=== PATIENT | male | born 1975 | race Caucasian/White ===

== ENCOUNTER 2019-04-12 19:07 | Emergency (ER) | payer OTHER ==
[2019-04-12] MEDS ORDERED: Dicyclomine CAP* 10 MG PO ONE (19:32)
--- NOTE | 2019-04-12 20:01 | ED ---
Laceration/Wound HPI - HPI Summary HPI Summary: Patient complains of partial amputation of distal portion of left medial thumb involving portion of nail and nailbed today. Tetanus status up-to-date. Patient brings amputated portion with him in a Tupperware. No anti-coag. Denies any other pain injury or symptoms. - History of Current Complaint Stated Complaint: CUT ON THUMB PER PT Time Seen by Provider: 04/12/19 19:31 Hx Obtained From: Patient Mechanism of Injury: Sharp/Blunt Trauma Aggravating: Nothing Alleviating: Nothing Onset Severity: Mild Current Severity: Mild Pain Intensity: 3 Pain Scale Used: 0-10 Numeric Associated Signs & Symptoms: Negative - Allergy/Home Medications Allergies/Adverse Reactions: Allergies Allergy/AdvReac Type Severity Reaction Status Date / Time No Known Allergies Allergy Verified 04/12/19 19:14 PMH/Surg Hx/FS Hx/Imm Hx Endocrine/Hematology History: Denies: Hx Anticoagulant Therapy Cardiovascular History: Denies: Hx Pacemaker/ICD History: Denies: Hx Dialysis Sensory History: Denies: Hx Eye Prosthesis Opthamlomology History: Denies: Hx Legally Blind EENT History: Denies: Hx Deafness Neurological History: Denies: Hx Dementia Infectious Disease History: No Infectious Disease History: Denies: Traveled Outside the [place] in Last 30 Days - Family History Known Family History: Positive: Non-Contributory - Social History Alcohol Use: Occasionally Hx Substance Use: No Hx Tobacco Use: No Review of Systems Constitutional: Negative Eyes: Negative ENT: Negative Cardiovascular: Negative Respiratory: Negative Gastrointestinal: Negative Genitourinary: Negative Musculoskeletal: Negative Skin: Other Neurological: Negative Psychological: Normal All Other Systems Reviewed And Are Negative: Yes Physical Exam - Summary Physical Exam Summary: Amputation of distal tip of medial left thumb 1 cm x 1 cm involving portion of nail and nail bed. No indication for suturing. Exam of left hand otherwise normal. Triage Information Reviewed: Yes Vital Signs On Initial Exam: Initial Vitals Temp Pulse Resp BP Pulse Ox 98.3 F 68 16 126/79 100 04/12/19 19:12 04/12/19 19:12 04/12/19 19:12 04/12/19 19:12 04/12/19 19:12 Vital Signs Reviewed: Yes Appearance: Positive: Well-Appearing Skin: Positive: Warm Head/Face: Positive: Normal Head/Face Inspection Eyes: Positive: Normal Neck: Positive: Supple Respiratory/Lung Sounds: Positive: Clear to Auscultation Cardiovascular: Positive: Normal Abdomen Description: Positive: Nontender Musculoskeletal: Positive: Normal Neurological: Positive: Normal Psychiatric: Positive: Normal AVPU Assessment: Alert - Rylie Coma Scale Best Eye Response: 4 - Spontaneous Best Motor Response: 6 - Obeys Commands Best Verbal Response: 5 - Oriented Coma Scale Total: 15 Diagnostics - Vital Signs Vital Signs Temp Pulse Resp BP Pulse Ox 04/12/19 19:12 98.3 F 68 16 126/79 100 - Laboratory Lab Statement: Any lab studies that have been ordered have been reviewed, and results considered in the medical decision making process. Laceration Repair Course/Dx - Course Course Of Treatment: Patient complains of partial amputation of distal portion of left medial thumb involving portion of nail and nailbed today. Tetanus status up-to-date. Patient brings amputated portion with him in a Tupperware. No anti-coag. Denies any other pain injury or symptoms. Vital signs within normal limits. Patient's thumb wrapped in Xeroform, surgecell and pressure wrapped. Patient advised to keep dressing on for 2 days, and then remove. - Clinical Impression Provider Diagnoses: Laceration Discharge - Sign-Out/Discharge Documenting (check all that apply): Patient Departure Patient Received Moderate/Deep Sedation with Procedure: No - Discharge Plan Condition: Stable Disposition: HOME Patient Education Materials: Laceration Without Closure (ED) Referrals: No Primary Care Phys,NOPCP [Primary Care Provider] - Additional Instructions: Leave dressing on finger for 2 days. You may change outer wrapping if you wish. Keep dressing clean and dry for 2 days. Removed after 2 days. You may then wash with warm running water and soap. Keep clean and dry and protected when not washing. Return to the ED for any new or worsening symptoms. - Billing Disposition and Condition Condition: STABLE Disposition: Home
[2019-04-12 21:25] VITALS: BP 128/70
== END 2019-04-12 21:24 | disposition home or self-care (01) ==
LOC: ED 19:07
DX: S68.022A Partial traumatic metacarpophalangeal amputation of left thumb, initial encounter (principal); X58.XXXA Exposure to other specified factors, initial encounter; Y92.9 Unspecified place or not applicable
CPT/HCPCS: 99281